=== PATIENT | female | born 1980 | race Caucasian/White ===

== ENCOUNTER → 2017-01-03 | Outpatient (CLI) | payer MEDICARE, OTHER | LOC: KOH-I 15:10 | DX: M54.2 Cervicalgia (principal); S00.83XA Contusion of other part of head, initial encounter; M47.812 Spondylosis without myelopathy or radiculopathy, cervical region; Z98.890 Other specified postprocedural states | CPT/HCPCS: 70450; 72050 ==

== ENCOUNTER → 2020-09-25 | Outpatient (CLI) | payer MEDICARE ==
[~2020-09-25] MED LIST: CYMBALTA60 MG PO; METOPROLOL SUC100 MG PO; NEURONTIN 300300 MG PO; NORVASC 5 MG TAB5 MG PO; OXYCONTIN15 MG PO; PRILOSEC OTC20 MG PO; ZANAFLEX4 MG PO; ZOFRAN ODT4 MG PO
== END ==
LOC: CT 09:35
DX: R10.9 Unspecified abdominal pain (principal)
CPT/HCPCS: Q9967

== ENCOUNTER → 2021-01-21 | Outpatient (CLI) | payer MEDICARE | LOC: KOH-I 16:19 | DX: S69.91XA Unspecified injury of right wrist, hand and finger(s), initial encounter (principal) | CPT/HCPCS: 73130; 73140 ==

== ENCOUNTER → 2021-09-10 | Outpatient (CLI) | payer MEDICARE | LOC: US 09-08 16:30 | DX: R60.0 Localized edema (principal); I82.4Z2 Acute embolism and thrombosis of unspecified deep veins of left distal lower extremity | CPT/HCPCS: 93971 ==

== ENCOUNTER → 2022-05-17 | Outpatient (CLI) | payer MEDICARE | LOC: KOH-I 13:42 | DX: R10.9 Unspecified abdominal pain (principal); Z87.442 Personal history of urinary calculi | CPT/HCPCS: 74176 ==